=== PATIENT | female | born 1965 | race Two or more races ===

== ENCOUNTER → 2022-12-16 | Emergency (ER) | payer OTHER ==
[~2022-12-16] VITALS: Ht 157.5 cm; Wt 78.3 kg
[~2022-12-16] MED LIST: IBUP600T28 PO; KETOROLAC TROMETH 30 MG/ML 1ML VIAL IM ONE
[2022-12-16 14:36] VITALS: BP 134/72
== END | disposition home or self-care (01) ==
LOC: ER 14:22
DX: S66.811A Strain of other specified muscles, fascia and tendons at wrist and hand level, right hand, initial encounter (principal); X58.XXXA Exposure to other specified factors, initial encounter; Y93.89 Activity, other specified; Y92.89 Other specified places as the place of occurrence of the external cause; Y99.8 Other external cause status
CPT/HCPCS: 29125; 73080; 96372; 99283; J1885

== ENCOUNTER 2023-10-10 09:50 | Day surgery (SDC) | payer BC ==
[~2023-10-10] VITALS: Ht 157.5 cm; Wt 77.1 kg
[~2023-10-10 09:50] MED LIST changes: +ASPI-543 PO; +ATOR10TA52 PO; -IBUP600T28 PO; -KETOROLAC TROMETH 30 MG/ML 1ML VIAL IM ONE; +NITR0.4S29 SL; +OMEG1400 PO
[2023-10-10] MEDS ORDERED: ANGIOMAX 250 MG VIAL IV ONE (11:34)
[2023-10-10] MEDS ORDERED: HEPARIN SODIUM (PORCINE) 5000 UNITS/ML 1ML VIAL ONE (11:34)
[2023-10-10] MEDS ORDERED: VERAPAMIL 2.5MG/ML INJ 2ML VIAL IV ONE (11:34)
[2023-10-10] MEDS ORDERED: MIDAZOLAM HCL 2MG/2ML 2ml VIAL (1mg/ml) ONE (11:35)
[2023-10-10] MEDS ORDERED: SODIUM CHL 0.9% 0 ML ONE (11:35)
[2023-10-10] MEDS ORDERED: LIDOCAINE 2%HCL (LOCAL ANESTH.) INJ 20ML MDV ONE (11:35)
[2023-10-10] MEDS ORDERED: fentaNYL CITRATE 100 MCG/2 ML VL ONE (11:35)
[2023-10-10] MEDS ORDERED: IODIXANOL 320MG/ML 100ML BTL IV ONE ×2 (11:35→12:20)
[2023-10-10] MEDS ORDERED: NITROGLYCERIN 5MG/ML 10ML VIAL IV ONE (12:08)
[2023-10-10] MEDS ORDERED: SODIUM CHL 0.9% 50 ML ONE (12:08)
[2023-10-10 12:36] VITALS: BP 108/64; PULSE 86; RESP 23; O2SAT 94
[2023-10-10 12:53] VITALS: BP 93/53; PULSE 72; RESP 16; O2SAT 94
[2023-10-10 13:08] VITALS: BP 92/54; PULSE 66; RESP 13; O2SAT 92
[2023-10-10 13:22] VITALS: BP 92/57; PULSE 63; RESP 13; O2SAT 94
[2023-10-10 13:53] VITALS: BP 99/58; PULSE 64; RESP 13; O2SAT 95
[2023-10-10 14:21] VITALS: BP 111/66; PULSE 80; RESP 18; O2SAT 96
== END 2023-10-10 14:44 | disposition home or self-care (01) ==
LOC: CATH 09:50
PROVIDERS: ATTEND Internal Medicine
DX: I25.119 Atherosclerotic heart disease of native coronary artery with unspecified angina pectoris (principal); I10 Essential (primary) hypertension; E78.5 Hyperlipidemia, unspecified; Z82.49 Family history of ischemic heart disease and other diseases of the circulatory system; Z79.82 Long term (current) use of aspirin; Z79.899 Other long term (current) drug therapy
CPT/HCPCS: 93458; C1725; C1894; J1644; J2250; J3010; J3490; Q9967; 99152